=== PATIENT | male | born 1940 | race Caucasian/White ===

== ENCOUNTER 2016-12-01 20:29 | Emergency (ER) | payer OTHER ==
[2016-12-01 20:35] VITALS: BP 128/53
[2016-12-01 20:56] VITALS: BMI 24.7
== END 2016-12-01 21:30 | disposition left against medical advice (07) ==
LOC: ER 20:29
DX: Z46.6 Encounter for fitting and adjustment of urinary device (principal)
CPT/HCPCS: 99281

== ENCOUNTER 2017-02-09 21:22 | Emergency (ER) | payer OTHER ==
[2017-02-09] MEDS ORDERED: SOLU-Medrol 125 MG VIAL ONE (21:37)
[2017-02-09] MEDS ORDERED: DUONEB 0.5 MG/3 MG ONE (21:38)
[2017-02-09 21:39] VITALS: BP 133/58; BMI 23.2
[2017-02-09] MEDS ORDERED: SOLU-Medrol 125 MG VIAL IVP ONE (21:41)
[2017-02-09] MEDS ORDERED: DUONEB 0.5 MG/3 MG NEB ONE (21:41)
--- NOTE | 2017-02-09 21:43 | DR.GENAD ---
HPI - PCP Primary Care Physician: Rohit - HPI Comment HPI Comment: RESENT PNEUMONIA. TAKING MAINTENANCE CANCER THERAPY VIA [facility] IN [place]. LOW GRADE FEVER PRESENT. NOT CURRENTLY ON ANTIBIOTICS - Complaint/Symptoms Chief Complaint Doctors Comments: INCREASING SOB AND OXYGEN DESATURATION THAT GOT WORSE TODAY. Chief Complaint:: "He has been having shortness of breath. He was SATing at 89 with 2 liters on. He has also been coughing up a lot of green stuff. The doctor said to come on up and get a chest xray." - Nurses notes reviewed Nurses Notes Review: Yes - Source History Provided: Patient - Mode of Arrival Mode of Arrival: Wheelchair - Timing Onset of Chief Complaint: 02/05/17 Came on: Gradually - Duration Duration: Constant Duration: Days - Severity Severity: Moderate PMH - PMH Past Medical History: Yes Past Medical History: Hypertension Past Surgical History: Yes Surgical History: Appendectomy, CABG/Valve Surgery - Family History History of Family Medical Conditions: Yes Family Medical History: Diabetes Mellitus, Cancer, [place], Coronary Artery Disease, Heart Failure, Sudden Cardiac , Hypertension - Social History Does patient currently use any type of tobacco product: No Have you used tobacco products in the last 12 months: No Type of Tobacco Use: None Does any household member use tobacco: No Alcohol Use: Rarely Do you use any recreational Drugs:: No Lives With: Family Lives Where: Home - infectious screening In the last 2 months have you had wt loss of >10#?: NO Have you had fever, night sweats or hemotysis?: No Have you traveled outside the country in the last 6 months?: No Isolation: Standard ROS - Review of Systems Constitutional: Fever, Weakness, Fatigue, Loss of Appetite. negative: Chills, Diaphoresis Eyes: No Symptoms Reported. negative: Eye Pain, Discharge ENTM: Nose Discharge, Nose Congestion. negative: Ear Pain, Throat Pain Respiratoy: Productive Cough, Short of Breath, Wheezing. negative: Hemoptysis Cardiovascular: Chest Pain. negative: Edema, Palpitations, Syncope Gastrointestinal/Abdominal: Abdominal Pain. negative: Constipation, Diarrhea, Nausea, Vomiting Genitourinary: negative: Dysuria, Frequency, Hematuria, Pain, Bleeding Neurological: Headache, Weakness, Dizziness Musculoskeletal: Back Pain, Muscle Pain Integumentary: Change in Color, Dryness, Other (STASIS DERMATITIS) Hematologic/Lymphatic: Anemia Endocrine: No Symptoms Reported All Other Systems: Reviewed and Negative PE - Vital Signs Vitals: Temperature 99.4 F Pulse Rate 62 Respiratory Rate 18 Blood Pressure [Right Arm] 128/53 Blood Pressure 133/58 O2 Sat by Pulse Oximetry 91 - General Limitations: No Limitations General Appearance: Alert - Head Head Exam: Normal Inspection - Eyes Eye exam: Normal Appearance - ENT ENT Exam: Normal External Ear Exam External Ear Exam: Normal External Inspection TM/Canal Exam: Bilateral Normal Nose Exam: Normal Nose Exam Mouth Exam: Normal Inspection Throat Exam: Normal Inspection - Neck Neck Exam: Normal Inspection - Chest Chest Inspection: Symmetric Chest Wall Rise - Respiratory Respiratory Exam: Respiratory Distress Respiratory Exam: Bilateral Wheezing, Bilateral Rhonchi, Upper Wheezing, Upper Rhonchi, Lower Wheezing, Lower Rhonchi - Cardiovascular Cardiovascular Exam: Regular Rate, Normal Rhythm, Normal Heart Sounds - Abdominal Exam Abdominal Exam: Normal Bowel Sounds, Soft. negative: Tenderness - Extremities Extremities Exam: negative: Tenderness, Calf Tenderness - Back Back Exam: Paraspinal Tenderness - Neurologic Neurological Exam: Alert, Oriented X3 - Psychiatric Psychiatric Exam: Normal Affect, Normal Mood - Skin Skin Exam: Erythema MDM - Additional Information Additional Information Obtained From: Family - Differential Diagnosis Differential Diagnosis: COPD EXACERBATION, CHF, PNEUMONIA, PNEUMOTHORAX, Course - Treatment Treatment: SEE REPORT. - Consultation Consultation Comments: DISCUSS PT WITH DR. CARTWRIGHT. HE WILL FOLLOW UP IN THE OFFICE. - Education/Counseling Education/Counseling: Patient, Family, Education Educated On: Diagnosis, Needs for Follow Up ROR - Labs Reviewed Laboratory Results Reviewed?: Yes Result Diagrams: 02/09/17 21:58 02/09/17 21:58 Laboratory: WBC 10.6 X10^3/uL (3.6-10.0) H 02/09/17 21:58 RBC 3.40 X10^6/uL (4.7-6.0) L 02/09/17 21:58 Hgb 10.6 g/dL (13.5-18.0) L 02/09/17 21:58 Hct 32.9 % (42.0-54.0) L 02/09/17 21:58 MCV 97.0 fL (80.0-100.0) 02/09/17 21:58 MCH 31.3 pg (27.0-34.0) 02/09/17 21:58 MCHC 32.3 g/dL (33.0-35.0) L 02/09/17 21:58 RDW 24.4 % (11.6-16.5) H 02/09/17 21:58 Plt Count 199 X10^3/uL (150.0-450.0) 02/09/17 21:58 Plt Count Comment Adequate (ADEQUATE) 02/09/17 21:58 MPV 8.7 fL (7.4-11.0) 02/09/17 21:58 Neut % 63.6 % (42.0-75.0) 02/09/17 21:58 Lymph % 17.1 % (21.0-51.0) L 02/09/17 21:58 Crawford % 16.9 % (0.0-13.0) H 02/09/17 21:58 Eos % 1.5 % (0.9-2.9) 02/09/17 21:58 Baso % 0.9 % (0.2-1.0) 02/09/17 21:58 Neut # 6.8 x10^3/uL (2.2-4.8) H 02/09/17 21:58 Lymph # 1.8 X10^3/uL (1.3-2.9) 02/09/17 21:58 Crawford # 1.8 x10^3/uL (0.3-0.8) H 02/09/17 21:58 Eos # 0.2 x10^3/uL (0.0-0.2) 02/09/17 21:58 Baso # 0.1 X10^3/uL (0.0-0.1) 02/09/17 21:58 Absolute Nucleated RBC 0.1 /100WBC 02/09/17 21:58 Plt Morphology Comment Normal (NORMAL) 02/09/17 21:58 RBC Morphology Abnormal (NORMAL) 02/09/17 21:58 Anisocytosis 3+ A 02/09/17 21:58 Sample Site Lr 02/09/17 23:07 ABG pH 7.400 (7.35-7.45) 02/09/17 23:07 ABG pCO2 52.0 mmHg (35.0-45.0) H* 02/09/17 23:07 ABG pO2 49.0 mmHg (80.0-100.0) L* 02/09/17 23:07 ABG HCO3 32.2 mmol/L (22-26) H* 02/09/17 23:07 ABG O2 Saturation 84.0 % (90-100) L* 02/09/17 23:07 ABG Base Excess 6.1 mmol/L (-2.0-2.0) H 02/09/17 23:07 Jace Test Pos 02/09/17 23:07 A-a Gradient 86.0 mmHg 02/09/17 23:07 FiO2 28.000 02/09/17 23:07 Blood Gas Comments Sheila well ae 02/09/17 23:07 Sodium 144 mmol/L (136-145) 02/09/17 21:58 Corrected Sodium TNP 02/09/17 21:58 Potassium 3.4 mmol/L (3.5-5.1) L 02/09/17 21:58 Chloride 105 mmol/L (98-107) 02/09/17 21:58 Carbon Dioxide 31.8 mmol/L (21-32) 02/09/17 21:58 BUN 16 mg/dL (7-18) 02/09/17 21:58 Creatinine 0.80 mg/dL (0.70-1.30) 02/09/17 21:58 Est GFR (MDRD) Af Amer > 60 (>60) 02/09/17 21:58 Est GFR (MDRD) Non-Af > 60 (>60) 02/09/17 21:58 Glucose 109 mg/dL (65-99) H 02/09/17 21:58 Calcium 8.7 mg/dL (8.5-10.1) 02/09/17 21:58 Corrected Calcium 9.3 mg/dL (8.5-10.1) 02/09/17 21:58 Total Bilirubin 0.70 mg/dL (0.2-1.0) 02/09/17 21:58 AST 20 Units/L (15-37) 02/09/17 21:58 ALT 20 Units/L (12-78) 02/09/17 21:58 Alkaline Phosphatase 86 Units/L (46-116) 02/09/17 21:58 Creatine Kinase 56 Units/L (39-308) 02/09/17 21:58 CK-MB (CK-2) 1.0 ng/mL (0-4.0) 02/09/17 21:58 CK/CKMB % Calc 1.8 % (<4) 02/09/17 21:58 Troponin I < 0.02 ng/mL (0-1.5) 02/09/17 21:58 B-Natriuretic Peptide 450 pg/mL (0-79) H 02/09/17 21:58 Total Protein 7.7 g/dL (6.4-8.2) 02/09/17 21:58 Albumin 3.2 g/dL (3.4-5.0) L 02/09/17 21:58 Globulin 4.5 g/dL (2.5-4.5) 02/09/17 21:58 Albumin/Globulin Ratio 0.7 Ratio (1.1-2.1) L 02/09/17 21:58 - XRAY XRAY Interpreted by: Radiologist XRAY Findings: REPORT DISCUSS WITH PATIENT AND HIS . - EKG Rhythm: NSR (EKG NOTED.) - Diagnosis Discharge Problem: COPD with exacerbation, Acute on chronic respiratory failure with hypoxia Acute bronchitis Qualifiers: Bronchitis organism: other organism Qualified Code(s): J20.8 - Acute bronchitis due to other specified organisms Pneumonia Qualifiers: Pneumonia type: due to unspecified organism Laterality: right Lung location: lower lobe of lung Qualified Code(s): J18.1 - Lobar pneumonia, unspecified organism - Discharge Plan Disposition: HOME, SELF-CARE Condition: Stable Prescriptions: Azithromycin [Zithromax Z-Diogo 5-day] 1 dose PO DAILY #6 tab Doxycycline (Monohydrate) [Doxycycline Monohydrate] 100 mg PO BID #20 cap - Follow ups/Referrals Follow ups/Referrals: SILVIA CARTWRIGHT [Primary Care Provider] - 3 days - Instructions Instructions: Community-Acquired Pneumonia, Adult, [id number], Chronic Obstructive Pulmonary Disease Exacerbation, [id number] Additional Instructions: RETURN TO ED IF WORSE.
[2017-02-09 22:32] LABS: BASOPHILS # (AUTO) 0.1 X10^3/uL (0.0-0.1); BASOPHILS % (AUTO) 0.9 % (0.2-1.0); EOSINOPHILS # (AUTO) 0.2 x10^3/uL (0.0-0.2); EOSINOPHILS % (AUTO) 1.5 % (0.9-2.9); HEMATOCRIT 32.9 % (42.0-54.0); HEMOGLOBIN 10.6 g/dL (13.5-18.0); LYMPHOCYTES # (AUTO) 1.8 X10^3/uL (1.3-2.9); LYMPHOCYTES % (AUTO) 17.1 % (21.0-51.0); MEAN CORPUSCULAR HEMOGLOBIN 31.3 pg (27.0-34.0); MEAN CORPUSCULAR HGB CONC 32.3 g/dL (33.0-35.0); MEAN PLATELET VOLUME 8.7 fL (7.4-11.0); MONOCYTES # (AUTO) 1.8 x10^3/uL (0.3-0.8); MONOCYTES % (AUTO) 16.9 % (0.0-13.0); NEUTROPHILS # (AUTO) 6.8 x10^3/uL (2.2-4.8); NEUTROPHILS % (AUTO) 63.6 % (42.0-75.0); PLATELET COUNT 199 X10^3/uL (150.0-450.0); RED CELL DISTRIBUTION WIDTH 24.4 % (11.6-16.5); WHITE BLOOD COUNT 10.6 X10^3/uL (3.6-10.0)
[2017-02-09 22:39] LABS: BLOOD UREA NITROGEN 16 mg/dL (7-18); CALCIUM 8.7 mg/dL (8.5-10.1); CARBON DIOXIDE 31.8 mmol/L (21-32); CHLORIDE 105 mmol/L (98-107); GLUCOSE 109 mg/dL (65-99); SODIUM 144 mmol/L (136-145); TROPONIN I < 0.02 ng/mL (0-1.5); eGFR BLACK RACES > 60 (>60); eGFR NON BLACK RACES > 60 (>60)
[2017-02-09 22:41] LABS: B-TYPE NATRIURETIC PEPTIDE 450 pg/mL (0-79)
--- NOTE | 2017-02-09 22:42 | RAD ---
HISTORY: Shortness of breath and cough Study: Two-view chest Comparison: November 27, 2016 Findings: The trachea is midline. The cardiac silhouette is stable in size as is a right-sided Port-A-Cath an d changes from previous CABG procedure. The lungs demonstrate persistent chronic interstitial sanders es with a residual right perihilar opacity which has improved. A small effusion is also noted on the right.. The bony thorax is unremarkable. IMPRESSION: 1. Improved aeration right perihilar region with persistent infiltrate and a small right-sided effu carlee. Reported By:
[2017-02-09 22:44] LABS: ALANINE AMINOTRANSFERASE 20 Units/L (12-78); ALBUMIN 3.2 g/dL (3.4-5.0); ALKALINE PHOSPHATASE 86 Units/L (46-116); ANISOCYTOSIS 3+; ASPARTATE AMINO TRANSFERASE 20 Units/L (15-37); CKMB % 1.8 % (<4); COR CA(FOR HYPOALB) 9.3 mg/dL (8.5-10.1); CREATINE KINASE 56 Units/L (39-308); PLATELET MORPHOLOGY COMMENT NORMAL (NORMAL); TOTAL PROTEIN 7.7 g/dL (6.4-8.2)
[2017-02-09] MEDS ORDERED: POTASSIUM CHLORIDE LIQ 20 MEQ UDC PO ONE (22:50)
[2017-02-09] MEDS ORDERED: POTASSIUM CHLORIDE LIQ 20 MEQ UDC ONE (23:00)
[2017-02-09] MEDS ORDERED: ZITHROMAX INJ 500 MG VIAL 500 MG in NS 250 ML IV 250 ML IV SCH (23:00)
[2017-02-09] MEDS ORDERED: NS 250 ML IV 250 ML IV ONE (23:06)
[2017-02-09] MEDS ORDERED: ZITHROMAX INJ 500 MG VIAL IV ONE (23:06)
[2017-02-09 23:12] LABS: ABG BASE EXCESS 6.1 mmol/L (-2.0-2.0)
[2017-02-09 23:13] LABS: ABG HCO3 32.2 mmol/L (22-26)
[2017-02-09 23:14] LABS: ABG ALLEN TEST POS
[2017-02-10] MEDS ORDERED: VIBRAMYCIN PO ONE ×2 (00:12→00:15)
== END 2017-02-10 00:45 | disposition home or self-care (01) ==
LOC: ER 21:22
DX: J18.1 Lobar pneumonia, unspecified organism (principal); J96.20 Acute and chronic respiratory failure, unspecified whether with hypoxia or hypercapnia; J44.1 Chronic obstructive pulmonary disease with (acute) exacerbation; J20.8 Acute bronchitis due to other specified organisms
CPT/HCPCS: 36415; 36600; 71020; 80053; 82550; 82553; 82803; 83880; 84484; 85025; 87040; 93005; 93010; 94640; 96365; 96374; 96375; 99283; A4222; J0456; J2930; J7620

== ENCOUNTER 2017-09-09 12:37 | Emergency (ER) | payer OTHER ==
[2017-09-09 12:41] VITALS: BP 145/67; BMI 23.5
--- NOTE | 2017-09-09 13:12 | DR.GENAD ---
HPI - PCP Primary Care Physician: SMART - Complaint/Symptoms Chief Complaint Doctors Comments: Patient with lung disease with COPD and CA, denies any change in sputum and denies fever. Chief Complaint:: PATIENT STATED THAT HE FEELS LIKE HE CAN'T GET ANY AIR. PATIENT STATED THAT HE HAS STARTED COUGHING STUFF UP. - Source History Provided: Patient - Mode of Arrival Mode of Arrival: Ambulatory - Timing Onset of Chief Complaint: 09/09/17 PMH - PMH Past Medical History: Yes Past Medical History: COPD, Hypertension Past Medical History Comment: COLON CA, PROSTATE ENLARGEMNET Past Surgical History: Yes Surgical History: Abdominal Surgery, Appendectomy, CABG/Valve Surgery - Family History History of Family Medical Conditions: Yes Family Medical History: Diabetes Mellitus, Cancer, [place], Coronary Artery Disease, Heart Failure, Sudden Cardiac , Hypertension - Social History Does patient currently use any type of tobacco product: No Have you used tobacco products in the last 12 months: No Type of Tobacco Use: None Does any household member use tobacco: No Alcohol Use: None Do you use any recreational Drugs:: No - infectious screening In the last 2 months have you had wt loss of >10#?: NO Have you had fever, night sweats or hemotysis?: No Have you traveled outside the country in the last 6 months?: No Isolation: Standard ROS - Review of Systems Eyes: No Symptoms Reported ENTM: No Symptoms Reported Respiratoy: No Symptoms Reported Cardiovascular: No Symptoms Reported Gastrointestinal/Abdominal: No Symptoms Reported Genitourinary: No Symptoms Reported Neurological: No Symptoms Reported Musculoskeletal: No Symptoms Reported Integumentary: No Symptoms Reported Hematologic/Lymphatic: No Symptoms Reported Endocrine: No Symptoms Reported Psychiatric: No Symptoms Reported All Other Systems: Reviewed and Negative PE - Vital Signs Vitals: Pulse Rate 95 Respiratory Rate 20 Blood Pressure [Right Arm] 128/53 Blood Pressure 145/67 O2 Sat by Pulse Oximetry 90 - General Limitations: No Limitations General Appearance: Alert, In No Apparent Distress - Head Head Exam: Normal Inspection, Atraumatic - Eyes Eye exam: Normal Appearance, PERRL, EOMI - ENT ENT Exam: Normal Exam External Ear Exam: Normal External Inspection TM/Canal Exam: Bilateral Normal Nose Exam: Normal Nose Exam Mouth Exam: Normal Inspection Throat Exam: Normal Inspection - Neck Neck Exam: Normal Inspection - Chest Chest Inspection: Normal Inspection - Respiratory Respiratory Exam: Normal Lung Sounds Bilat Respiratory Exam: Bilateral Clear to Auscultation - Cardiovascular Cardiovascular Exam: Regular Rate, Normal Rhythm - Abdominal Exam Abdominal Exam: Normal Inspection, Normal Bowel Sounds Abdominal Tenderness: negative: RUQ, RLQ, LUQ, LLQ, Epigastrium, Suprapubic, Diffuse, Mild, Moderate, Severe, Other - Extremities Extremities Exam: Normal Inspection, Full ROM - Back Back Exam: Normal Inspection, Full ROM - Neurologic Neurological Exam: Alert, Oriented X3, CN II-XII Intact - Psychiatric Psychiatric Exam: Normal Affect - Skin Skin Exam: Intact ROR - Labs Reviewed Result Diagrams: 09/09/17 13:08 09/09/17 13:08 - XRAY XRAY Interpreted by: Radiologist (Chest: Interval improvement in interstitial pulmonary infioltrates since 02/09/17. Residual intersitial prominence may represent chronic peribronchial thickening. Lymphangitic metastases can produce similar radiographic findings.) - Diagnosis Discharge Problem: COPD (chronic obstructive pulmonary disease) Qualifiers: COPD type: unspecified COPD Qualified Code(s): J44.9 - Chronic obstructive pulmonary disease, unspecified - Discharge Plan Condition: Stable - Follow ups/Referrals Follow ups/Referrals: MELISA QUEEN [Primary Care Provider] - 3 days - Instructions
[2017-09-09] MEDS ORDERED: NS 1000 ML 1,000 ML IV ONE (13:13)
[2017-09-09] MEDS ORDERED: DOPAMINE IV PREMIX 400 MG/250 ML 400 MG/250 ML BAG IV PRN (13:14)
--- NOTE | 2017-09-09 13:26 | RAD ---
Examination: Chest, PA and lateral views History: Cough, SOB, lung and colon cancer Comparison reference 02/09/2017 Findings: Continued normal heart size with arteriosclerotic aorta, findings of sternotomy and stable position of right IJ injection port. Diffuse increase in interstitial pulmonary pattern is again note d although some improvement in this process is noted since previous examination. There is no evidence for consolidation, hilar mass or pleural effusion. Impression: Interval improvement in interstitial pulmonary infiltrates since 02/09/2017. Residual int erstitial prominence may represent chronic peribronchial thickening. Lymphangitic pulmonary metastase s can produce similar radiographic findings. Reported By:
[2017-09-09] MEDS ORDERED: ROCEPHIN VIAL 1 GM IM ONE (13:33)
[2017-09-09] MEDS ORDERED: ROCEPHIN VIAL 1 GM ONE (13:34)
[2017-09-09 13:57] LABS: BLOOD UREA NITROGEN 10 mg/dL (7-18); CALCIUM 8.7 mg/dL (8.5-10.1); CHLORIDE 102 mmol/L (98-107); COR NA(FOR HYPERGLY) 140 mmol/L (136-145); CREATININE 0.71 mg/dL (0.70-1.30); SODIUM 140 mmol/L (136-145); eGFR BLACK RACES > 60 (>60); eGFR NON BLACK RACES > 60 (>60)
[2017-09-09 14:02] LABS: BASOPHILS # (AUTO) 0.1 X10^3/uL (0.0-0.1); BASOPHILS % (AUTO) 0.4 % (0.2-1.0); EOSINOPHILS # (AUTO) 0.2 x10^3/uL (0.0-0.2); EOSINOPHILS % (AUTO) 1.2 % (0.9-2.9); HEMATOCRIT 41.7 % (42.0-54.0); HEMOGLOBIN 13.5 g/dL (13.5-18.0); LYMPHOCYTES # (AUTO) 0.6 X10^3/uL (1.3-2.9); LYMPHOCYTES % (AUTO) 4.4 % (21.0-51.0); MEAN CORPUSCULAR HGB CONC 32.4 g/dL (33.0-35.0); MEAN CORPUSCULAR VOLUME 95.7 fL (80.0-100.0); MEAN PLATELET VOLUME 8.4 fL (7.4-11.0); MONOCYTES % (AUTO) 7.2 % (0.0-13.0); NEUTROPHILS # (AUTO) 12.6 x10^3/uL (2.2-4.8); NEUTROPHILS % (AUTO) 86.8 % (42.0-75.0); PLATELET COUNT 307 X10^3/uL (150.0-450.0); RED BLOOD COUNT 4.36 X10^6/uL (4.7-6.0); RED CELL DISTRIBUTION WIDTH 19.8 % (11.6-16.5); WHITE BLOOD COUNT 14.5 X10^3/uL (3.6-10.0)
[2017-09-09 14:25] LABS: PLATELET MORPHOLOGY COMMENT NORMAL (NORMAL)
== END 2017-09-09 14:08 | disposition home or self-care (01) ==
LOC: ER 12:48
DX: J44.9 Chronic obstructive pulmonary disease, unspecified (principal)
CPT/HCPCS: 36415; 71020; 80048; 85025; 85378; 96372; 99282; J0696

== ENCOUNTER → 2017-11-11 | Outpatient (CLI) | payer OTHER ==
--- NOTE | 2017-11-11 14:01 | RAD ---
HISTORY: Cough, shortness of breath Study: Two views of the chest Comparison: September 09, 2017 Findings: The patient is slightly rotated. The cardiac silhouette is relatively stable. Chronic appearing inter stitial changes are again seen throughout both lungs. Superimposed acute bronchitis cannot be exclude d. Recommend clinical correlation and continued follow-up is indicated for further evaluation. There is flattening of the hemidiaphragms within an increased retrosternal airspace. Mild blunting of the c ostophrenic angles is noted suggesting pleural thickening and/or small effusions. The aorta is partia lly calcified and tortuous. A right-sided port is again demonstrated. Postoperative changes of midlin e sternotomy are noted. IMPRESSION: Radiographic findings of COPD. Superimposed acute bronchitis cannot be excluded. Reported By:
== END | disposition home or self-care (01) | DRG 204 ==
LOC: RAD 13:22
PROVIDERS: ATTEND Obstetrics & Gynecology Obstetrics
DX: R06.09 Other forms of dyspnea (principal); J44.9 Chronic obstructive pulmonary disease, unspecified
CPT/HCPCS: 71046